=== PATIENT | female | born 1950 | race Caucasian/White ===

== ENCOUNTER 2024-10-04 12:44 | Outpatient (OUT) | payer MEDICARE, SELFPAY ==
[2024-10-04 13:12] LABS: Hemoglobin 13.3 g/dL (12.0-16.0)
--- NOTE | 2024-10-04 13:53 | RT_ITS ---
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 Findings were considered accurate and reproducible. No bronchodilator was administered due to normal spirometric values. Spirometry: -FEV1/FVC: Normal @ 80% -FEV1: Normal @ 91% -FVC: Normal @ 86% Lung volumes by plethysmography: -RV: Normal @ 101% -TLC: Normal @ 102% Diffusion capacity: -DLCO: Moderate reduction @ 60% when corrected for Hb 13.3g/dL Prior testing from 01/11/2020: -T% -DLCO 72% Impressions: -Normal spirometry and lung volumes with isolated diffusion impairment. When compared to prior testing, there is a decline in the DLCO which may indicate progression of an underlying cardiopulmonary vascular disease, ILD, or emphysema. Clinical correlation required. Electronically Signed On 10-04-2024 16:00:26 EDT by Chema Landers
== END 2024-10-04 12:45 | disposition home or self-care (01) ==
LOC: CARD 12:45
PROVIDERS: PCP Family Medicine; Visit Provider Internal Medicine
DX: R06.02 Shortness of breath (principal)
CPT/HCPCS: 36415; 85018; 94010; 94726; 94729